=== PATIENT | male | born 1985 | race Caucasian/White ===

== ENCOUNTER 2023-10-11 18:43 | Emergency (ER) | payer BC, SELFPAY ==
[2023-10-11 18:45] VITALS: BP 154/87; PULSE 92; RESP 18; TEMP 36.6; O2SAT 99
[2023-10-11] MEDS: TETANUS,DIPHTHERIA,AC PERTUSSIS ADULT (0.5 ML) BOOSTRIX IM (19:25)
--- NOTE | 2023-10-11 19:36 | ED.WOUNDLAC ---
HPI - Wound/Laceration General Chief Complaint: Wound/Laceration Stated Complaint: laceration Time Seen by Provider: 10/11/23 19:17 Source: patient and family Mode of arrival: ambulatory Limitations: no limitations History of Present Illness HPI narrative: Patient presents with a left sided head laceration. (Note: Triage complaint accidentally lists hand) Patient was building a fence and using a post p d driver which accidentally struck his head. No loss of consciousness, not on anticoagulation, no seizures or vomiting. Can not recall last tetanus shot. Related Data Allergies Allergy/AdvReac Type Severity Reaction Status Date / Time No Known Allergies Allergy Verified 10/11/23 18:52 PMFSH Past Medical History Medical History (Updated 10/13/23 @ 07:24 by Yisel Urrutia MD) Right hand dominant Exam Narrative: GENERAL: Well-appearing, well-nourished, and in no acute distress. HEAD: T-shaped laceration on left side of head, 2.5cm one aspect and 1cm along the other. Irrigated by nursing prior to my assessment, bleeding well controlled. Clean linear margins. EYES: Non injected, non icteric ENT: Nares clear, no rhinorrhea or epistaxis. NECK: Supple. CHEST: Speaking in full sentences. No respiratory distress. HEART: Regular rate and rhythm. . ABDOMEN: Soft, nondistended. EXTREMITIES: Normal range of motion. No edema. SKIN: Warm, dry, no rash. NEURO: No focal deficits. Alert and oriented x3. No abnormal movements appreciated. Speaks clearly without dysarthria or aphasia. PSYCH: Normal mood and affect. Course Vital Signs Vital signs: Vital Signs Temperature 97.9 F 10/11/23 18:45 Pulse Rate 92 10/11/23 18:45 Respiratory Rate 18 10/11/23 18:45 Blood Pressure 154/87 H 10/11/23 18:45 Pulse Oximetry 99 10/11/23 18:45 Oxygen Delivery Room Air 10/11/23 18:45 Temperature 97.9 F 10/11/23 18:45 Pulse Rate 92 10/11/23 18:45 Respiratory Rate 18 10/11/23 18:45 Blood Pressure 154/87 H 10/11/23 18:45 Pulse Oximetry 99 10/11/23 18:45 Oxygen Delivery Room Air 10/11/23 18:45 Procedures Laceration Laceration 1: Date: 10/11/23 Site: scalp Side (If applicable): left Size (cm): 3.5 Description: linear and clean Depth: simple, single layer Local Anesthetic: none Pre-repair: irrigated ====== Skin Level ====== Skin layer closed with: escobar Number of sutures: 7 ====== Subcutaneous Layer ====== ====== Muscle Layer ====== ====== Tendon Layer ====== MDM - Wound/Laceration MDM Narrative Medical decision making narrative: Patient presents with left sided head laceration. In the ED he is afebrile with vs that show hypertension. No indication for head CT based on [place] head CT rule. Discussed with patient ; shared decision making to defer this imaging. Tetanus updated given patient can not recall his last immunization. Patient given PO pain medication. Offered to numb area prior to escobar but patient deferred. Performed as above. Tolerated well without complication. Discharged with a staple remover to take with him to PCP. Also informed he can have escobar removed at urgent care or back in the ED in 7 days. Verified understanding. Discharged with Rx for pain medications. Differential Diagnosis Differential diagnosis: Likely laceration Discharge Plan Discharge Clinical Impression: Laceration of scalp Patient Disposition: Home, Self-Care Condition: Stable Instructions: Antibiotic Form, Laceration (DC), Staple Care (ED) Additional Instructions: you had 7 escobar placed. Practice good wound care. Warm soapy water is fine. They will need to be removed in 7 days. This can be done in the emergency department, at an urgent care, or at your primary care physician's office. You are being provided the removal tool just in case the location does not have 1. your tetanus shot
[2023-10-11] MEDS: ACETAMINOPHEN 500 MG TABLET 1000 MG PO (19:50)
== END 2023-10-11 20:49 | disposition home or self-care (01) ==
PROVIDERS: Emergency Provider Student in an Organized Health Care Education/Training Program; PCP Family Medicine
DX: S01.01XA Laceration without foreign body of scalp, initial encounter (principal); Z23 Encounter for immunization; W27.8XXA Contact with other nonpowered hand tool, initial encounter
CPT/HCPCS: 12001; 90471; 90715; 99283; A9270